=== PATIENT | male | born 1980 | race Caucasian/White ===

== ENCOUNTER → 2017-01-09 | Day surgery (SDC) | payer OTHER ==
[~2017-01-09] VITALS: Ht 175.3 cm; Wt 86.5 kg
[~2017-01-09] MED LIST: AMPICILLIN/SULBAC 3 GM/NS 100 ML IV PRN; CHLORHEXIDINE GLUCONATE 2 % 1 PACK (2 CLOTHS) TOPICAL PRN; HYDROmorphone HCL PF 1 MG/ML VIAL ONE; INSULIN HUMAN REGULAR 1,000 UNITS/10 ML VIAL SQ PRN; LACTATED RINGER'S 1000 ML IV PRN; LIDOCAINE 1%/EPINEPHrine 1:100,000 SOLN 20 ML VIAL ONE; MEPERIDINE HCL 25 MG/ML VIAL ONE; METOPROLOL TARTRATE 25 MG TAB PO PRN; MIDAZOLAM HCL 2 MG/2 ML VIAL ONE; MORPHINE SULFATE 8 MG/ML INJ ONE; OXYMETAZOLINE HCL 0.05% 15 ML NASAL SPRAY ONE; POVIDONE IODINE 5% (ANTISEPSIS KIT) 4 APPLICATIONS EACH NARE PRN; SODIUM CHLORID 0.9% 500 ML IV PRN
[2017-01-09 14:09] VITALS: PULSE 102
[2017-01-09 15:45] VITALS: BP 140/85; PULSE 74; RESP 16; TEMP 97.8; O2SAT 100
--- NOTE | 2017-01-15 08:23 | MP ---
cc: TAMERA CORRAL M.D. DATE OF SURGERY: January 09, [address] Tamera Corral PREOPERATIVE DIAGNOSIS 1. Nasal airway obstruction. 2. Nasal septal deviation. 3. Hypertrophy of inferior turbinates. 4. Chronic sinusitis. POSTOPERATIVE DIAGNOSIS 1. Nasal airway obstruction. 2. Nasal septal deviation. 3. Hypertrophy of inferior turbinates. 4. Chronic sinusitis. OPERATION PERFORMED 1. Open repair nasal septal fracture. 2. Bilateral submucosal resection of inferior turbinates. 3. Bilateral endoscopic maxillary antrostomy. 4. Bilateral endoscopic exploration of frontal sinus duct using Acclarent balloon technique. 5. Bilateral endoscopic sphenoidotomy. INDICATIONS Documented in the history and physical. DESCRIPTION OF OPERATION The patient was taken to OR #2 and placed in the supine position. Following induction of general anesthesia and intubation the nose was packed bilaterally with cotton pledgets saturated in 0.05% Oxymetazoline. The nasal septum and inferior turbinates were injected with a total of 8 mL of 1% Xylocaine with epinephrine 1:100,000. He was then prepped and draped for surgery. Packing was removed and a kathy-transfixion incision was made in the left nasal vestibule. Through this incision the mucosa of septum was elevated bilaterally as far as the junction of the bony and cartilaginous septum. This revealed the quadrangular cartilage which showed evidence of severe deviation toward the right with numerous old long healed fracture segments obstructing the right side of the nasal vault. A cumulative area of 2 x 2.5 cm was removed preserving 1.5 cm dorsal and caudal cartilaginous struts. The caudal strut was mobilized completely from the underlying bone and was then placed in the midline. Mucosa was then elevated from the bony septum and the maxillary crest and these were removed using Jerzy Schaferton forceps and a 6-mm PolySuite chisel. The incision was then closed with a running suture of 4-0 Chromic and the mucosal layers were approximated to each other with a quilting stitch of 4-0 plain gut. Inferior turbinates were addressed next. They were fractured out medially and stab incisions were opened along their inferior surfaces. Through these incisions submucosal soft tissue was reduced using a curette and preserving the conchal bone. The incisions were then cauterized using the suction Bovie at 35 wade and the remnants of the inferior turbinates were then re-lateralized with the lateral nasal wall. From this point forward the operation was performed using 0 degree fiberoptic scope. Additional injections were made into the attachments of the middle turbinates and into the uncinate processes. The left side was addressed first beginning with the Acclarent frontal sinus balloon. The guidewire was advanced into the frontal sinus. The balloon advanced over the wire and inflated at the superior limit at the midpoint of the duct and at the junction of the duct with the anterior ethmoids, each level to a pressure of 12 atmospheres, dilating the frontal duct. The right side of the frontal sinus was then operated in the same fashion. Using a 70 degree scope these were verified patent all the way into the frontal sinus. Next, the maxillary ostium was addressed. These were probed using a 3-mm olive tip suction and were enlarged with Stammberger forceps and the power microdebrider. This was performed bilaterally opening the maxillary sinuses. Lastly, the sphenoid ostia were addressed. These were probed using a #10 suction and with a 0 degree scope verified patent into the sphenoid sinus. All sinuses were then irrigated with chilled saline. The nose was packed bilaterally with 5.5 cm rapid rhino packs and each pack was inflated with 5 mL of air. The procedure was then terminated. The patient was reversed from anesthesia and taken to recovery in good condition. There were no complications. Blood loss was 80 mL. MD HANNAH Regan/JOSEL /7:09 AM /8:14 AM
== END | disposition home or self-care (01) ==
LOC: PHSDC 07:29
PROVIDERS: ATTEND Otolaryngology
DX: J34.2 Deviated nasal septum (principal); J34.3 Hypertrophy of nasal turbinates; J32.9 Chronic sinusitis, unspecified
CPT/HCPCS: 00160; 21335; 30140; 31256; 31276; 31288; J0295; J1170; J2175; J2250; J2270; J3010; J7120